=== PATIENT | female | born 1985 | race Caucasian/White ===

== ENCOUNTER 2018-05-01 10:48 | Day surgery (SDC) | payer OTHER, SELFPAY ==
--- NOTE | 2018-05-01 08:02 | W.PM.DSUDISC ---
Discharge Plan Disposition Patient Disposition: HOME Condition: Fair Discharge Details Reason For Visit: N/V , EPIGASTRIC PAIN Attending Provider: Rut Hernandez Primary Care Provider: Audrey Villarreal Home Meds and New Rx's Prescriptions: New famotidine 40 mg tablet 40 mg PO DAILY Qty: 30 RF: 0 Continue Parafin Bath Qty: 1 RF: 0 Lansoprazole 30 MG CAPSULE.DR 30 mg PO HS RF: 0 Discharge Instructions Instructions: Upper Endoscopy (DC), Diet for Stomach Ulcers and Gastritis (GEN), Gastritis (DC), Esophagitis (DC) Additional Instructions: Findings: inflammation of the stomach and esophagus Follow up : 3-4 weeks Diet: low acid New Medications : Famotidine 40 mg at night timelow acid Please call if you develop: fevers more then 101.5 Abdominal pain that is not transient Nausea or Vomiting 1. Because there will be medication in your system for the next 24 hours, you may feel a little sleepy. Your coordination will be affected. Therefore: a. Do not drive or operate dangerous equipment for 24 hours. b. Do not drink alcohol beverages for 24 hours (not even beer). c. Plan to go home and rest for the day. 2. Generally there are no restrictions on your activity after a day or so has gone by, but you may feel a bit fatigued for a few days. 3 After you arrive home you may have a light meal and return to a normal diet as you can tolerate it without feeling sick to your stomach. 4. After surgery, you may feel pain or discomfort. This should be only transient, but if it persists please contact your doctor. 5. If there are any questions regarding the findings of your procedure, please feel free to contact your doctor. 6. If you are unable to contact your doctor with a problem, contact the ospital at [phone]. 7. Continue all your regular medications unless directed otherwise. I understand the above instructions and have no questions. Signature of Patient or Responsible Adult Escort Date/Time Name of Responsible Adult Escort Signature of Nurse Date/Time Activity:: Activity as Tolerated Discharge Orders Discharge Orders: Discharge Order (Routine); Ordered 05/01/18 Ordered By: Rut Hernandez
--- NOTE | 2018-05-01 08:09 | PDOC.DSDIS_ITS ---
Discharge Plan Disposition Patient Disposition: HOME Condition: Fair Discharge Details Reason For Visit: N/V , EPIGASTRIC PAIN Attending Provider: Rut Hernandez Primary Care Provider: Audrey Villarreal Home Meds and New Rx's Prescriptions: New famotidine 40 mg tablet 40 mg PO DAILY Qty: 30 RF: 0 Continue Parafin Bath Qty: 1 RF: 0 Lansoprazole 30 MG CAPSULE.DR 30 mg PO HS RF: 0 Discharge Instructions Instructions: Upper Endoscopy (DC), Diet for Stomach Ulcers and Gastritis (GEN) , Gastritis (DC), Esophagitis (DC) Additional Instructions: Findings: inflammation of the stomach and esophagus Follow up : 3-4 weeks Diet: low acid New Medications : Famotidine 40 mg at night timelow acid Please call if you develop: fevers more then 101.5 Abdominal pain that is not transient Nausea or Vomiting 1. Because there will be medication in your system for the next 24 hours, you may feel a little sleepy. Your coordination will be affected. Therefore: a. Do not drive or operate dangerous equipment for 24 hours. b. Do not drink alcohol beverages for 24 hours (not even beer). c. Plan to go home and rest for the day. 2. Generally there are no restrictions on your activity after a day or so has gone by, but you may feel a bit fatigued for a few days. 3 After you arrive home you may have a light meal and return to a normal diet as you can tolerate it without feeling sick to your stomach. 4. After surgery, you may feel pain or discomfort. This should be only transient , but if it persists please contact your doctor. 5. If there are any questions regarding the findings of your procedure, please feel free to contact your doctor. 6. If you are unable to contact your doctor with a problem, contact the ospital at [phone]. 7. Continue all your regular medications unless directed otherwise. I understand the above instructions and have no questions. Signature of Patient or Responsible Adult Escort Date/Time Name of Responsible Adult Escort Signature of Nurse Date/Time Activity:: Activity as Tolerated Discharge Orders Discharge Orders: Discharge Order (Routine); Ordered 05/01/18 Ordered By: Rut Hernandez
[2018-05-01 11:21] VITALS: BP 128/82; PULSE 85; RESP 16; TEMP 38; O2SAT 95
[2018-05-01] MEDS: Lactated Ringers 1,000 ML 80 ML IV (11:42)
--- NOTE | 2018-05-01 13:13 | ESO_PTH ---
PATIENT: Skylar Arboleda LOC: [facility] U#:[id number] AGE/SX: 32/F ROOM: RE05/01/[address]: Rut Hernandez MD : 1985 BED: DIS: 05/01/2018 SPEC #: [id number] RECD: 05/01/18 17:15 STATUS: [facility] #: [id number] JUSTIN: 05/01/18 13:[address]: Rut Hernandez DEPT: Surgical Specimen RECD BY: Joslyn Camacho ENTERED: 05/01/18 17:16 SP TYPE: Eso OTHR DR: Audrey Villarreal Tissues: 1 - ESOPHAGUS BIOPSY 2 - STOMACH BIOPSY Procedures: GROSS AND MICRO LEVEL 4 Comments: [id number]
[2018-05-01 13:53] VITALS: BP 119/80; PULSE 76; RESP 16; TEMP 37.3; O2SAT 100
--- NOTE | 2018-05-02 17:21 | W.PM.OP ---
Date of service: 05/01/18 Operative Note Date of procedure: 05/01/18 Pre-op diagnosis: Nausea, Vomiting and epigastric pain Post-op diagnosis: other (gastritis and esophagitis) Procedure: EGD Surgeon: Rut Hernandez Anesthesia: MAC Estimated blood loss (mL): 3 Pathology: other (gastrin and GE junction biopsies) Complications: None Patient was transported to: same day Patient's condition: stable Indications: Ms. Arboleda is a pleasant 32 year old female with a history of Nausea and vomiting in the am mostly as well as epigastric pain. Risks, benefits and complications of an EGD were reviewed with her and she wished to proceed. No guarantees were given or implied. Findings: Gastritis and Esophagitis Procedure Description: After informed concent was obtained the patient was taken to the procedure room. Monitors were applied and a time out was done. The patients name, date of , allergies to medications, metal in her body and procedure type were reviewed. The patient was then sedated and a bite block was placed. Once the patient was asleep and comfortable the scope was introduced. The scope was advanced through the oropharynx which was grossly normal into the esophagus. The proximal and mid esophagus were normal. In the distal esophagus there was evidence of reflux esophagitis. The scope was advanced into the stomach and through the pylorus into the duodenum. The duodenum was normal. The scope was retracted into the stomach and gastritis was identified in the antrum. Biopsies of the antrum were done. The scope was retrofelxed. The cardia and fundus were normal and no hiatal hernia was identified. The scope was straigthened and pulled back into the esophagus. Biopsies of the GE junction were done. The Z line was slightly irregular and was at 32 cm. The scope was then retracted and removed. The bite block was removed and the patient was woken up and taken to same day surgery in stable condition. The patient tolerated the procedure well and there were no immediate complications.
== END 2018-05-01 14:11 | disposition home or self-care (01) ==
LOC: SUR 10:49
PROVIDERS: PCP Nurse Practitioner Family; Visit Provider Surgery
PROC: 0DJ68ZZ Inspection of Stomach, Via Natural or Artificial Opening Endoscopic (ICD-10-PCS; CPT 43235; principal; 2018-05-01 13:45)
DX: R10.13 Epigastric pain (principal); R11.2 Nausea with vomiting, unspecified; K21.0 Gastro-esophageal reflux disease with esophagitis
CPT/HCPCS: 43239; 88305

== ENCOUNTER 2019-11-03 09:54 | Outpatient (REF) | payer OTHER, SELFPAY ==
[2019-11-03 12:40] LABS: Anion Gap 7.7 mmol/L (3-11); BUN 9 mg/dL (7-18); CO2 29.3 mmol/L (21.0-32.0); Calcium 8.7 mg/dL (8.5-10.1); Calculated LDL 104 mg/dL (<100); Chloride 104 mmol/L (98-107); Cholesterol 162 mg/dL (<200); Glucose 81 mg/dL (74-106); HDL Cholesterol 46 mg/dL (40-60); Potassium 4.3 mmol/L (3.5-5.1); Sodium 141 mmol/L (136-145); Triglyceride 61 mg/dL (<150)
== END 2019-11-03 10:14 ==
LOC: NCHCN 09:54
PROVIDERS: PCP Nurse Practitioner Family; Visit Provider Nurse Practitioner Family
DX: Z00.00 Encounter for general adult medical examination without abnormal findings (principal); Z13.220 Encounter for screening for lipoid disorders; Z13.228 Encounter for screening for other metabolic disorders
CPT/HCPCS: 80048; 80061

== ENCOUNTER 2023-03-04 16:03 | Emergency (ER) | payer BC, SELFPAY ==
[2023-03-04 16:10] VITALS: BP 136/86; PULSE 85; RESP 18; TEMP 36.8; O2SAT 100
--- NOTE | 2023-03-04 16:31 | W.ED.GENAD ---
Discharge Plan Disposition Patient Disposition: Home Discharge Details Clinical Impression: Lumbosacral strain Primary Care Provider: Manju Kaur ED Provider: Norm Serna Home Meds and New Rx's Prescriptions: New ibuprofen [IBU] 600 mg tablet 600 mg PO QID PRN (Reason: pain) Qty: 20 0RF cyclobenzaprine 10 mg tablet 10 mg PO TID PRN (Reason: muscle spasm) Qty: 15 0RF Continued famotidine 40 mg tablet 40 mg PO DAILY Qty: 30 3RF Parafin Bath Qty: 1 0RF Rx Instructions: Use parafin hot wax bath prior to physical/occupational therapy. Lansoprazole 30 MG CAPSULE.DR 30 mg PO HS Discharge Instructions Instructions: Low Back Strain (ED), Lower Back Exercises (ED) Additional Instructions: You may continue to perform light duty exercises but please minimize any bending lifting or twisting type motions as this may worsen your back pain. Take medication as prescribed but please use caution with the muscle relaxer as this may cause significant sedation. If not improving in the next 1 to 2 weeks please follow-up with your primary care provider for reassessment. Return to the emergency department for any new or significant worsening of your symptoms. Referrals: Manju Kaur [Primary Care Provider] - 2 weeks Medical Decision Making Patient presenting to the emergency department for chief complaint of back pain. Patient reports that she has been having this intermittently for the past 2 weeks. She states that she had moved furniture but that she has also been dealing with some right heel pain and had some abnormal gait due to the discomfort. Patient denies any injury or trauma, fever chills, IV drug use, change in bowel or bladder function. LOW risk for ABDOMINAL AORTIC ANEURYSM, CAUDA EQUINA SYNDROME, EPIDURAL MASS LESION, SPINAL STENOSIS, OR HERNIATED DISK CAUSING SEVERE STENOSIS, thus I consider the discharge disposition reasonable. We will give IM ketorolac to help with her discomfort and recommend NSAIDs and some muscle relaxant due to some paraspinal tenderness and spasm. We have discussed the diagnosis and risks, and we agree with discharging home to follow-up with their primary doctor. We also discussed returning to the Emergency Department immediately if new or worsening symptoms occur. We have discussed the symptoms which are most concerning (e.g., saddle anesthesia, urinary or bowel incontinence or retention, changing or worsening pain) that necessitate immediate return. After discussion of diagnosis and plan of care patient has no further needs, questions, or concerns and states clear understanding to return to the emergency department for any worsening symptoms. This documentation was generated using [employer] dictation system, please disregard any oddities of phrase or misspellings. HPI General Mode of arrival: ambulatory. Date/Time Provider Initiated Documentation: 03/04/23 16:14. Limitations to Documentation: no limitations. Information obtained by: patient and RN notes reviewed. History of Present Illness 37 year old F presents to the emergency department with the chief complaint of back pain , described as moderate, Quality is described as aching and sharp, and is localized to the back. Patient reports no radiation. Patient started experiencing this week(s) (2) and it has been intermittent. No relieving factors improve symptom(s), Movement worsens symptoms . Patient notes no other symptoms.. Patient did receive the following treatments prior to arrival, NSAID Related Data Home Medications Medication Instructions Recorded Confirmed Lansoprazole 30 mg PO HS 03/24/18 06/03/18 famotidine 40 mg tablet 40 mg PO DAILY #30 tabs 06/03/18 cyclobenzaprine 10 mg tablet 10 mg PO TID PRN muscle spasm #15 03/04/23 tabs ibuprofen 600 mg tablet (IBU) 600 mg PO QID PRN pain #20 tabs 03/04/23 Previous Rx's Medication Instructions Recorded famotidine 40 mg tablet 40 mg PO DAILY #30 tabs 06/03/18 cyclobenzaprine 10 mg tablet 10 mg PO TID PRN muscle spasm #15 03/04/23 tabs ibuprofen 600 mg tablet (IBU) 600 mg PO QID PRN pain #20 tabs 03/04/23 Allergies Allergy/AdvReac Type Severity Reaction Status Date / Time No Known Drug Allergies Allergy Verified 05/01/18 11:18 General Stated Complaint: Nk/Back Pain JAMIA: 4 Review of Systems Constitutional Constitutional: Denies chills and Denies fever(s) Cardiovascular Cardiovascular: Denies chest pain and Denies dyspnea on exertion Respiratory Respiratory: Denies cough and Denies dyspnea on exertion Gastrointestinal Gastrointestinal: Denies abdominal pain, Denies change in bowel habits, Denies diarrhea, Denies nausea and Denies vomiting Genitourinary Genitourinary: Denies urinary incontinence Musculoskeletal Musculoskeletal: Reports as per HPI and Reports back pain Neurologic Neurologic: Denies sensory deficit PFSH All Active Problems (Updated 03/04/23 @ 16:50 by Norm Serna NP) Lumbosacral strain (Acute) History of esophagogastroduodenoscopy (EGD) (Chronic) Esophagitis determined by biopsy (Acute) Medical History Cannabis abuse Epigastric pain Menstrual disorder Nausea and vomiting Right hand pain Social History Smoking/Tobacco Use Status: Current every day Tobacco Type: cigarettes Smoking risk assessment performed?: Yes Alcohol Intake: never Drug use: Daily Substance use type: marijuana Housing: house Do you feel safe in your relationship?: Yes Exam Const General: cooperative and no acute distress Orientation: alert, awake and oriented x3 Neck Neck: normal visual inspection, full ROM and no meningeal signs Resp Effort & Inspection: normal respiratory effort Auscultation: clear to auscultation bilaterally Cardio Rate: regular rate Rhythm: regular rhythm Heart Sounds: S1 normal and S2 normal Back/Spine/Pelvis Thoracic/Lumbar Spine: pain with thoraco-lumbar ROM, paraspinal tenderness, No thoracic spinal tenderness and lumbar spinal tenderness Pelvis: no pain with anterior-posterior compression and no pain with lateral compression Neuro General: patient alert, patient awake and patient oriented x3 DTR's: Rt Patellar: 2+, Lt Patellar: 2+, Rt Ankle: 2+ and Lt Ankle: 2+ Course Vital Signs Vital signs: Vital Signs Temperature 36.8 C 03/04/23 16:10 Pulse 85 03/04/23 16:10 Respiratory Rate 18 03/04/23 16:10 Blood Pressure 136/86 03/04/23 16:10 Pulse Oximetry 100 03/04/23 16:10 Temperature 36.8 C 03/04/23 16:10 Temperature Source Oral 03/04/23 16:10 Pulse 85 03/04/23 16:10 Respiratory Rate 18 03/04/23 16:10 Blood Pressure 136/86 03/04/23 16:10 Pulse Oximetry 100 03/04/23 16:10 Oxygen Delivery Method Room Air 03/04/23 16:10 Oxygen Flow Rate 0 03/04/23 16:10
[2023-03-04] MEDS: Ketorolac 30 MG/ML VIAL IM (16:41)
--- NOTE | 2023-03-04 18:40 | NUR.NOTE ---
Nursing Note: Referall given to care managment, recheck back pain in two weeks.-
== END 2023-03-04 17:00 | disposition home or self-care (01) ==
PROVIDERS: Emergency Provider Nurse Practitioner Family; PCP Nurse Practitioner Family
DX: S39.012A Strain of muscle, fascia and tendon of lower back, initial encounter (principal); F17.210 Nicotine dependence, cigarettes, uncomplicated; X58.XXXA Exposure to other specified factors, initial encounter
CPT/HCPCS: 99282; 99283; J1885

== ENCOUNTER 2023-03-15 22:12 | Outpatient (REF) | payer BC, SELFPAY ==
[2023-03-15 15:40] LABS: HCT 41.8 % (36.0-46.0); HGB 14.2 g/dL (11.2-15.7); MCH 30.3 pg (27.0-33.0); MCV 89 fL (80-95); MPV 11.4 fL (8.0-11.0); Platelet Count 232 10^3/uL (130-400); RBC 4.68 10^6/uL (3.93-5.22); RDW 13.2 % (11.7-14.6); RDW-SD 43.2 fL; WBC 8.05 10^3/uL (4.4-10.8)
[2023-03-15 16:13] LABS: Anion Gap 8.3 mmol/L (3-11); BUN 7 mg/dL (7-18); CO2 25.7 mmol/L (21.0-32.0); CREATININE 0.8 mg/dL (0.55-1.02); Calcium 8.7 mg/dL (8.5-10.1); Calculated LDL 134 mg/dL (<100); Chloride 105 mmol/L (98-107); Cholesterol 196 mg/dL (<200); Estimated GFR 96.06 (mL/min/1.73m2); Glucose 86 mg/dL (74-106); HDL Cholesterol 51 mg/dL (40-60); Sodium 139 mmol/L (136-145); Triglyceride 59 mg/dL (<150)
[2023-03-15 17:05] LABS: Hemoglobin A1C 5.1 % (<5.7)
== END 2023-03-15 22:13 | disposition home or self-care (01) ==
LOC: NCHCN 22:12
PROVIDERS: PCP Nurse Practitioner Family; Visit Provider Nurse Practitioner Family
DX: Z00.00 Encounter for general adult medical examination without abnormal findings (principal); F17.200 Nicotine dependence, unspecified, uncomplicated; K21.00 Gastro-esophageal reflux disease with esophagitis, without bleeding; Z13.1 Encounter for screening for diabetes mellitus; M54.59 Other low back pain; Z13.220 Encounter for screening for lipoid disorders
CPT/HCPCS: 80048; 80061; 85027; 83036

== ENCOUNTER 2023-05-10 18:29 | Outpatient (REF) | payer BC, SELFPAY ==
--- NOTE | 2023-05-10 15:00 | PAPFT_PTH ---
PATIENT: Skylar Arboleda LOC: [facility]#:[id number] AGE/SX: 37/F ROOM: RE05/10/[address]: Kajal Iniguez NP : 1985 BED: DIS: 05/10/2023 SPEC #: [id number] RECD: 05/10/23 18:37 STATUS: [facility] REQ #: [id number] JUSTIN: 05/10/23 15:[address]: Kajal Ingiuez DEPT: [facility] Cytology RECD BY: Joslyn Camacho ENTERED: 05/10/23 18:38 SP TYPE: PAPFT OTHR DR: OPAL SILVA Tissues: 1 - CX/ENDOCX FOR PAP SMEARS Procedures: PAP THIN PREP/[facility]VM Screening HPV DNA PROBE Comments: [id number] (CHLAMYDIA/GC)
[2023-05-10 18:44] LABS: HCT 43.8 % (36.0-46.0); HGB 14.8 g/dL (11.2-15.7); MCH 29.5 pg (27.0-33.0); MCHC 33.8 % (32.0-36.0); MCV 87 fL (80-95); MPV 11.5 fL (8.0-11.0); Platelet Count 262 10^3/uL (130-400); RBC 5.01 10^6/uL (3.93-5.22); RDW 13.4 % (11.7-14.6); RDW-SD 43.1 fL; WBC 8.97 10^3/uL (4.4-10.8)
[2023-05-10 19:13] LABS: Anion Gap 11.6 mmol/L (3-11); BUN 12 mg/dL (7-18); CO2 23.4 mmol/L (21.0-32.0); CREATININE 0.9 mg/dL (0.55-1.02); Calcium 9.5 mg/dL (8.5-10.1); Calculated LDL 146 mg/dL (<100); Chloride 102 mmol/L (98-107); Cholesterol 215 mg/dL (<200); Glucose 90 mg/dL (74-106); HDL Cholesterol 56 mg/dL (40-60); Potassium 3.9 mmol/L (3.5-5.1); Sodium 137 mmol/L (136-145); Triglyceride 69 mg/dL (<150)
[2023-05-13 10:39] LABS: HIV-1/2 Ag & Ab Screen Negative (Negative)
[2023-05-13 11:04] LABS: HSV Type 1 Ab, IgG Negative (Negative); HSV Type 2 Ab, IgG Positive (Negative)
[2023-05-13 11:11] LABS: Syphilis Serology (RPR) Negative (Negative)
[2023-05-13 12:55] LABS: Chlamydia Result Negative (Negative); GC Result Negative (Negative)
== END 2023-05-10 18:30 | disposition home or self-care (01) ==
LOC: NCHCN 18:29
PROVIDERS: PCP Nurse Practitioner Family; Visit Provider Nurse Practitioner Family
DX: Z00.00 Encounter for general adult medical examination without abnormal findings (principal); Z12.4 Encounter for screening for malignant neoplasm of cervix; Z11.51 Encounter for screening for human papillomavirus (HPV); Z11.3 Encounter for screening for infections with a predominantly sexual mode of transmission
CPT/HCPCS: 80048; 80061; 85027; 87389; 87491; 87591; 88142; 83036; 86592; 86695; 86696; 87480; 87510; 87624; 87660

== ENCOUNTER 2025-05-21 19:53 | Outpatient (REF) | payer SELFPAY ==
[2025-05-21 21:19] LABS: Abs Immature Grans 0.02 10^3/uL (0.0-0.06); HCT 44.0 % (36.0-46.0); HGB 14.8 g/dL (11.2-15.7); Immature Grans % 0.2 %; MCH 30.1 pg (27.0-33.0); MCHC 33.6 % (32.0-36.0); MCV 89 fL (80-95); MPV 11.8 fL (8.0-11.0); Platelet Count 259 10^3/uL (130-400); RBC 4.92 10^6/uL (3.93-5.22); RDW 13.0 % (11.7-14.6); RDW-SD 42.2 fL; WBC 8.37 10^3/uL (4.4-10.8)
[2025-05-21 21:37] LABS: ALT 18 U/L (14-59); AST 13 U/L (15-37); Albumin 4.0 g/dL (3.4-5.0); Alkaline Phosphatase 68 U/L (46-116); Anion Gap 12.4 mmol/L (3-11); BUN 11 mg/dL (7-18); Bilirubin, Total 0.3 mg/dL (0.2-1.0); CO2 24.6 mmol/L (21.0-32.0); Calcium 8.6 mg/dL (8.5-10.1); Calculated LDL 116 mg/dL (<100); Chloride 102 mmol/L (98-107); Cholesterol 171 mg/dL (<200); Estimated GFR 94.87 (mL/min/1.73m2); Glucose 83 mg/dL (74-106); HDL Cholesterol 41 mg/dL (>or=50); Potassium 4.2 mmol/L (3.5-5.1); Sodium 139 mmol/L (136-145); Total Protein 7.5 g/dL (6.4-8.2); Triglyceride 70 mg/dL (<150)
[2025-05-21 22:12] LABS: Hemoglobin A1C 5.0 % (<5.7)
== END 2025-05-21 19:54 | disposition home or self-care (01) ==
LOC: NCHCN 19:53
DX: Z00.00 Encounter for general adult medical examination without abnormal findings (principal)
CPT/HCPCS: 80053; 80061; 83036; 85025

== ENCOUNTER 2025-06-01 02:21 | Outpatient (CLI) | payer SELFPAY ==
--- NOTE | 2025-06-01 | DI.MAMMO_ITS ---
Exam(s) MAMMO SCREENING EXAM: MAMMO SCREENING CLINICAL HISTORY: SCREENING, Z12.31 TECHNIQUE: Bilateral full field digital CC and MLO mammographic images were obtained with 3D tomosynthesis and utilizing computer aided detection (CAD). COMPARISON: This is a baseline examination. FINDINGS: Masses/Architectural Distortion: No suspicious masses or areas of architectural distortion are present. Microcalcifications: No suspicious pleomorphic-type are seen. Skin Thickening/Nipple Retraction: None. IMPRESSION: 1. No evidence for malignancy is seen at this time. 2. Unless there is more urgent need, screening mammography is recommended, as per [employer] [employer] guidelines. BI-RADS Category 1 - Negative Breast Density - Category B - There are scattered areas of fibroglandular density. Breast density Category C or D implies that the patient has dense breast tissue. Dense breast tissue can make it harder to find cancer on a mammogram. Dense breast tissue is also associated with an increased risk of breast cancer. This information about the result of the mammogram report was provided to the patient to raise their awareness. Use this report when you speak with the patient about their risks for breast cancer, which includes their family history. At that time, you may recommend additional screening tests (Ultrasound or MRI) as these tests may add significant information. A negative radiographic report should not delay biopsy if a dominant or clinically suspicious mass is present. Up to ten percent of cancers are not identified on mammography. A negative report may reinforce clinical impression. Adenosis and dense breasts may obscure an underlying neoplasm. False positive reports average 6 to 10%. Patient will receive a letter notifying them of these results.
== END 2025-06-01 02:41 ==
LOC: DI 02:21
DX: Z12.31 Encounter for screening mammogram for malignant neoplasm of breast (principal)
CPT/HCPCS: 77063; 77067